=== PATIENT | female | born 1990 ===

== ENCOUNTER 2017-08-23 15:02 | Observation (INO) ==
[2017-08-23 15:56] LABS: Amphetamine Screen,Urine Negative ng/mL (Cutoff=1000); Barbiturate Screen,Urine Negative ng/mL (Cutoff=200); Benzodiazepines Screen,Urine Negative ng/mL (Cutoff=200); Cannabinoid Screen,Urine Negative ng/mL (Cutoff = 50); Cocaine Screen,Urine Negative ng/mL (Cutoff= 300); Opiate Screen,Urine Negative ng/mL (Cutoff=300); Phencyclidine Screen,Urine Negative ng/mL (Cutoff=25)
[2017-08-23 16:42] LABS: Bilirubin,Urine Negative (Negative); Clarity,Urine Cloudy (Clear); Color,Urine Yellow (Yellow); Glucose,Urine (UA) Normal (Normal); Ketones,Urine Negative (Negative)
[2017-08-23 16:43] LABS: Blood,Urine Negative (Negative); Leukocyte Esterase,Urine Moderate (Negative); Nitrite,Urine Negative (Negative); PH,Urine 5.5 pH Units (5.0-8.0); Protein,Urine Negative (Neg-Trace); RBC,Urine 0-3 per hpf (0-3); Specific Gravity,Urine 1.029 (1.010-1.025); Urobilinogen,Urine Normal (Normal)
[2017-08-23 16:44] LABS: Bacteria,Urine Few per hpf (None-Few); Squamous Epithelial Cell,Urine Moderate per lpf (None-Few)
--- NOTE | 2017-08-23 16:48 | OB/GYN Progress Note ---
Date of Encounter: 08/23/17 Time of Encounter: 16:44 - Assessment and Plan (1) Uterine contractions during Current Visit: Yes Status: Acute Labor precautions given Follow up with primary OB Discharge home Subjective - Subjective Interval history: Pt reports mildly painful contractions starting . States she has been under a lot of stress lately with multiple family emergencies and has had to drive back and forth between [facility] and [place]. Denies VB, LOF, GARCÍA, vision changes, RUQ pain. Antepartum ROS: movement normal, contractions, no loss of fluid, no vaginal bleeding Objective - Vital Signs Vital Signs: Intake and Output 08/23/17 08/23/17 08/23/17 07:59 15:59 23:59 Other: Weight 108.3 kg Patient Weight 08/23/17 23:59 Weight 108.3 kg - Exam FHR: category 1 Auscultation: bilateral: normal Abdomen: Present: normal appearance, soft, gravid Uterus: Present: normal Cervical dilation: 0 Cervix effacement: 30 station: -4 - Labs Labs: Abnormal lab results Urine Clarity Cloudy (Clear) A 08/23/17 15:40 Ur Specific [place] 1.029 (1.010-1.025) H 08/23/17 15:40 Ur Leukocyte Esterase Moderate (Negative) H 08/23/17 15:40 Urine Microscopic WBC 5-15 per hpf (0-3) H 08/23/17 15:40 Ur Squamous Epith Cells Moderate per lpf (None-Few) H 08/23/17 15:40 Ur Culture Indicated? YES (NO) A 08/23/17 15:40
== END 2017-08-23 16:55 | disposition home or self-care (01) ==
LOC: 1NENULAB
PROVIDERS: ADMIT Obstetrics & Gynecology; ATTEND Obstetrics & Gynecology